=== PATIENT | female | born 1995 | race Caucasian/White ===

== ENCOUNTER 2017-01-21 13:31 | Emergency (ER) | payer OTHER ==
[~2017-01-21] VITALS: Ht 165.1 cm; Wt 68.0 kg
[~2017-01-21 13:31] MED LIST: BENZONATATE200 MG PO; FIORICET 325 MG1 TAB PO; FLEXERIL10 MG PO; MEDROL DOSEPAK1 PAC PO; MOTRIN 800MG T800 MG PO; XANAX0.5 MG PO; ZOFRAN ODT4 MG PO
[2017-01-21 13:33] VITALS: BP 128/79
[2017-01-21] MEDS ORDERED: SUBOXONE 12 MG1 EACH SL (14:12)
[2017-01-21] MEDS ORDERED: SUBOXONE 8 MG-1 EACH SL (14:12)
[2017-01-21] MEDS ORDERED: CLONAZEPAM0.5 M2 PO (14:12)
[2017-01-21] MEDS ORDERED: VIBRAMYCIN100 MG PO (14:30)
--- NOTE | 2017-01-21 14:31 | ED GENERAL ADULT ---
History of Present Illness General Chief Complaint: Animal/Insect Bite Stated Complaint: TICK BITE Source: patient Exam Limitations: no limitations Vital Signs & Intake/Output Vital Signs & Intake/Output Vital Signs Date Time Temp Pulse Resp B/P B/P Pulse O2 O2 Flow FiO2 Mean Ox Delivery Rate 01/21 1333 98.3 97 20 128/79 99 Room Air Allergies Coded Allergies: NO KNOWN ALLERGIES (05/28/15) Triage Note: PT TO ED C/O RIGHT ARM NUMBNESS SINCE THIS AM. PT STATES SHE PULLED A TICK OUT OF HER BELLY BUTTON ON 01/19 WENT TO WALK IN AND GIVEN PO ABX. PT STATES SHE IS STILL CONCERNED THE TICK IS IN THERE. ALSO C/O JOINTS FEELING ACHY. PT HAS TICK WITH HER. Triage Nurses Notes Reviewed? yes : No Patient currently breastfeeds: No HPI: This patient is a 21-year-old female who presented to the emergency department today for evaluation of multiple complaints. The patient reported that pulled a tick out of her bellybutton earlier this week. She reported that she has had Lyme disease in the past. She reported that she went to the urgent care center and they gave her a one-day course of doxycycline. The patient reported that she is having joint pain and some numbness and tingling in her right arm. The patient reported that her symptoms feel similar to her prior Lyme disease symptoms. She is also reporting fatigue. (JOSÉ LUIS CUETO,ELFEGO) Reconcile Medications Buprenorphine HCl/Naloxone HCl (Suboxone 8 MG-2 MG Sl Film) 8 MG-2 MG FILM 1 STR SL DAILY NAINTENCE (Reported) Buprenorphine HCl/Naloxone HCl (Suboxone 12 MG-3 MG Sl Film) 12 MG-3 MG FILM 1 STR SL DAILY MAINTENCE (Reported) Clonazepam 0.5 MG TABLET 1 TAB PO BID ANXIETY (Reported) Doxycycline Hyclate (Vibramycin) 100 MG CAPSULE 1 CAP PO BID LYME PROPHYLAXIS (AYAZ GARNETT,GABRIELA Kaur) Past History Travel History Traveled to [place] past 21 day No Medical History Any Pertinent Medical History? see below for history Gastrointestinal: colitis Psychiatric: anxiety, on suboxone Other Medical Hx: Lyme disease Pneumonia Vaccine: 03/16/13 Surgical History Surgical History: non-contributory Psychosocial History What is your primary language Georgian Tobacco Use: Current Daily Use Daily Tobacco Use Amount/Type: => 5 Cigarettes daily ETOH Use: denies use Illicit Drug Use: denies illicit drug use Family History Hx Contributory? No (ELFEGO ORDONEZ PA-C) Review of Systems Review of Systems Constitutional: Reports: no symptoms. EENTM: Reports: no symptoms. Respiratory: Reports: no symptoms. Cardiovascular: Reports: no symptoms. GI: Reports: no symptoms. Genitourinary: Reports: no symptoms. Musculoskeletal: Reports: see HPI. Skin: Reports: no symptoms. Neurological/Psychological: Reports: see HPI. All Other Systems: Reviewed and Negative (ELFEGO ORDONEZ PA-C) Physical Exam Physical Exam General Appearance: well developed/nourished, no apparent distress, alert, awake Comments: Well-developed well-nourished person in no acute distress HEENT: Head normocephalic, moist mucous membranes Neck: Supple, no lymphadenopathy Back: Normal gait Respiratory: No respiratory distress. Speaking in full sentences Extremities: No edema, full range of motion Neuro: Alert and oriented x3 Psych: Mood affect normal, normal memory normal judgment. Skin: Warm and dry, no rash on exposed skin Core Measures ACS in differential dx? Yes CVA/TIA Diagnosis: No Severe Sepsis Present: No Septic Shock Present: No (ELFEGO ORDONEZ PA-C) Progress Differential Diagnoses I considered the following diagnoses in my evaluation of the patient: [Lyme disease, anxiety, paresthesia, anaplasmosis, ACS] Plan of Care: Orders Procedure Date/time Status LYME TITRE 01/21 1426 Active Laboratory Tests 01/21/17 1450: Lyme Disease Antibody Pending Initial ED EKG: none (ELFEGO ORDONEZ PA-C) Departure Departure Disposition: HOME OR SELF CARE Condition: Stable Clinical Impression Primary Impression: Tick bite Qualifiers: Encounter type: subsequent encounter Qualified Code: W57.XXXD - Bitten or stung by nonvenomous insect and other nonvenomous arthropods, subsequent encounter Referrals: PATIENT HAS NO PRIMARY CARE DR (PCP/Family) Additional Instructions: Please establish a primary care physician as discussed. Take antibiotic as prescribed for the full duration.RETURN FOR ANY WORSENING SYMPTOMS OR CONCERNS. Departure Forms: Customer Survey General Discharge Information Prescriptions: Current Visit Scripts Doxycycline Hyclate (Vibramycin) 1 CAP PO BID #[id number] CAP (ELFEGO ORDONEZ PA-C) PA/PAPERHANGER SUPERVISOR Co-Sign Statement Statement: ED Attending supervision documentation- [] I saw and evaluated the patient. I have also reviewed all the pertinent lab results and diagnostic results. I agree with the findings and the plan of care as documented in the PA's/PAPERHANGER SUPERVISOR's documentation. [X] I have reviewed the ED Record and agree with the PA's/PAPERHANGER SUPERVISOR's documentation. [] Additions or exceptions (if any) to the PAs/PAPERHANGER SUPERVISOR's note and plan are summarized below: [] (AYAZ GARNETT,GABRIELA Kaur) Critical Care Note Critical Care Note Critical Care Time: non-applicable (JOSÉ LUIS CUETO,ELFEGO)
== END 2017-01-21 15:01 ==
LOC: ERH 13:31
DX: S30.861A Insect bite (nonvenomous) of abdominal wall, initial encounter (principal); W57.XXXA Bitten or stung by nonvenomous insect and other nonvenomous arthropods, initial encounter; Y93.9 Activity, unspecified; Y92.9 Unspecified place or not applicable
CPT/HCPCS: 86618